=== PATIENT | female | born 1975 | race Hispanic/Latino ===

== ENCOUNTER 2022-01-28 15:01 | Emergency (ER) | payer OTHER ==
[~2022-01-28] VITALS: Ht 160 cm; Wt 70.3 kg
[~2022-01-28 15:01] MED LIST: CARAFATE1 GM PO; PROTONIX40 MG PO
[2022-01-28] MEDS ORDERED: NAPROSYN500 MG PO (19:31)
== END 2022-01-28 20:21 | disposition home or self-care (01) ==
LOC: ED 15:01
DX: S63.8X2A Sprain of other part of left wrist and hand, initial encounter (principal); X50.9XXA Other and unspecified overexertion or strenuous movements or postures, initial encounter
CPT/HCPCS: 29125; 73110; 99283-25